=== PATIENT | male | born 1960 | race Caucasian/White ===

== ENCOUNTER 2017-07-23 16:28 | Emergency (ER) | payer OTHER, SELFPAY ==
[2017-07-23 16:30] VITALS: BP 159/76; PULSE 67; RESP 16; TEMP 36.8; O2SAT 98; BMI 38.9
--- NOTE | 2017-07-23 16:48 | ED.VISSUMM ---
- ER Visit Summary Date of Service: 07/23/17 Chief Complaint: Left Thumb laceration History of Present Illness: The patient is a 57 M who cut his left thumb with a Utility knife today at work. He is left handed. Tetanus is uptodate. Physical Examination: 2.5 cm linear laceration across the volar surface of the thumb. no active bleeding. good opposition. normal movement. nvi distally. There is a small abrasion on the palm of the hand. Emergency Department Course and Treatment: Wound locally anesthesized with 1% lidocaine. Cleaned with surcleanse and explored. Closed using #5 4-0 Simple interuptted Ethilon Sutures. Wounds dressed. Wound care discussed with patient. Stitches need removed in 10-14 days. Impression: 2.5 cm left thumb laceration with repair This note was generated with Apprats dictation software. It may contain incorrect words, spelling, and punctuation that were not noted in review of the chart prior to signing ED Disposition - Plan for ED Patient: Disposition: Home or Assisted Living Chief Complaint: Laceration Instructions: ED Laceration Hand Referrals: Nemesio Barton III, MD [Primary Care Provider] - [facility] [GROUP OF PHYSICIANS] - 10-14 Days suture removal
--- NOTE | 2017-07-23 16:54 | ED.DCSUM_ITS ---
- ER Visit Summary Date of Service: 07/23/17 Chief Complaint: Left Thumb laceration History of Present Illness: The patient is a 57 M who cut his left thumb with a Utility knife today at work. He is left handed. Tetanus is uptodate. Physical Examination: 2.5 cm linear laceration across the volar surface of the thumb. no active bleeding. good opposition. normal movement. nvi distally. There is a small abrasion on the palm of the hand. Emergency Department Course and Treatment: Wound locally anesthesized with 1% lidocaine. Cleaned with surcleanse and explored. Closed using #5 4-0 Simple interuptted Ethilon Sutures. Wounds dressed. Wound care discussed with patient. Stitches need removed in 10-14 days. Impression: 2.5 cm left thumb laceration with repair This note was generated with YR.MRKT dictation software. It may contain incorrect words, spelling, and punctuation that were not noted in review of the chart prior to signing ED Disposition - Plan for ED Patient: Disposition: Home or Assisted Living Chief Complaint: Laceration Instructions: ED Laceration Hand Referrals: Nemesio Barton III, MD [Primary Care Provider] - [facility] [GROUP OF PHYSICIANS] - 10-14 Days suture removal
[2017-07-23 17:03] VITALS: RESP 18; O2SAT 97
== END 2017-07-23 17:08 | disposition home or self-care (01) ==
PROVIDERS: Emergency Provider Emergency Medicine; Family Provider Family Medicine; PCP Family Medicine
DX: S61.012A Laceration without foreign body of left thumb without damage to nail, initial encounter (principal); W26.0XXA Contact with knife, initial encounter; Y93.9 Activity, unspecified; Y92.89 Other specified places as the place of occurrence of the external cause; Y99.0 Civilian activity done for income or pay; E11.9 Type 2 diabetes mellitus without complications; I10 Essential (primary) hypertension; E78.00 Pure hypercholesterolemia, unspecified
CPT/HCPCS: 12001; 99284

== ENCOUNTER 2019-02-10 08:33 | Day surgery (SDC) | payer OTHER, SELFPAY ==
[2018-12-25 08:54] VITALS: BMI 38.9
--- NOTE | 2019-01-12 08:54 | HP_ITS ---
I have re-examined the patient. There are no clinical changes since date of exam. 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 Is patient in pain?: No Allergies No Known Allergies Allergy (Verified 12/25/18 08:50) Medications Albuterol IH (ProAir) [Proair Hfa] 1 puff PO DAILY 07/23/17 [History Confirmed 12/25/18] Budesonide/Formoterol 160/4.5 [Symbicort 160/4.5 Mcg Inhaler (SP)] 1 puff PO DAILY 07/23/17 [History Confirmed 12/25/18] Simvastatin [Zocor] 40 mg PO DAILY 07/23/17 [History Confirmed 12/25/18] aspirin 81 mg tablet,delayed release 81 mg PO DAILY 12/25/18 [History Confirmed 12/25/18] lisinopril 10 mg tablet 5 mg PO DAILY tab 12/25/18 [History Confirmed 12/25/18] montelukast 10 mg tablet 10 mg PO QPM 12/25/18 [History Confirmed 12/25/18] [facility] Medical History (Updated 12/25/18 @ 08:52 by Fannie Barton MD) Umbilical hernia without obstruction or gangrene (Acute) Asthma (Acute) Sleep apnea (Acute) Diabetes (Acute) Surgical History (Updated 12/25/18 @ 08:39 by Ximena Thacker) Hx of foot surgery (Acute) Hx of colonoscopy (Acute) Family History Father Diabetes Heart disease Hypertension High cholesterol Mother CVA (cerebral vascular accident) Social History (Updated 12/25/18 @ 08:54 by Fannie Barton MD) Smoking Status: Current every day smoker alcohol intake: current alcohol intake frequency: 0-2 drinks per day Alcohol type: beer substance use type: marijuana caffeine: Yes what type of physical activity do you participate in: walking HPI HPI HPI: FANNIE FRIED, is a 58 M who presents to the office today for HPI HPI Surgical H&P: Yes HPI: FANNIE FRIED, is a 58 M who presents to the office today for surgical consultation regarding a progressively enlarging umbilical hernia. The patient reminds me that I seen him several years in the past. At that point he weighed 260 pounds. Ice suggested to the that he consider weight loss prior to attempting repair. In the interim he has lost 50 pounds in weight. 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 He does do some heavy lifting and straining. ROS General General: Yes weight change; no appetite, fatigue, colon cancer, breast cancer or weakness HEENT HEENT: No difficulty swallowing, eye injury, eye surgery, swollen glands or hoarseness Endo Endocrine: Yes diabetes mellitus; no thyroid disease, thyroid cancer, Hair loss, heat intolerance or cold intolerance Skin Skin: No rash or changing moles Musc Musculoskeletal: No back problems, arthritis, rheumatoid arthritis, gout or joint pain Cardio Cardiovascular: No murmur, pacemaker, heart disease, atrial fibrillation, high blood pressure, heart attack, heart stent, palpitations, shortness of breat with exertion or chest pain Psych Psychiatric: No depression, anxiety or hearing voices Resp Respiratory: No shortness of breath, Yes sleep apnea, No cough, No COPD, Yes asthma, No emphysema, No wheezing Gastro Gastrointestinal: No abdominal pain, No nausea or vomiting, No diarrhea, No constipation, No blood in stool, No acid reflux, No hemorrhoids, No ulcers, No gallbladder problem, No black,tarry stools Randolph Hematologic: No blood thinners, No blood disorders, No bleeding, No anemia, No blood clots Neuro Neurologic: No system reviewed and no additional complaints, except as docu, No as per HPI, No abnormal walking, No abnormal hearing, No abnormal movements, No abnormal speech, No behavioral changes, No burning sensations, No confusion, No seizure-like activity, No unsteadiness, No dizziness, No localized weakness, No frequent falls, No headache(s), No lack of coordination, No loss of vision, No memory loss, No numbness, No other visual disturbances, No radiating pain, No restless legs, No sensory deficit, No fainting, No tingling, No tremor(s), No weakness, No other Exam Const General: cooperative, healthy appearing, comfortable, no acute distress Nutritional Appearance: average body habitus Orientation: alert, awake, oriented x3 HENMT Head: normal to inspection Resp Effort & Inspection: normal respiratory effort Auscultation: clear to auscultation bilaterally Cardio Rate: regular rate Rhythm: regular rhythm Heart Sounds: no murmurs GI Palpation: soft, no hepatosplenomegaly Auscultation: normal bowel sounds Other: Incarcerated umbilical hernia. Fixed fascial defect. No obvious bowel involvement. Normal bowel sounds Neuro Cognition: normal cognition Extrem General: no calf tenderness bilaterally Psych Affect: normal affect Assessment & Plan Problems 1. Umbilical hernia without obstruction or gangrene K42.9 Plan Progressively enlarging umbilical hernia. Successful weight loss. I recommended the patient umbilical herniorrhaphy with mesh and I have discussed the technique, benefit, risks, alternatives. I believe I can achieve this via an open approach. I did caution about the potential need to use laparoscopic visualization for reinforcement. He has had an opportunity to ask and have questions answered. He is aware of the potential risk of recurrence. We will schedule and proceed at his discretion. I very much appreciate the kind opportunity of assisting with his surgical care. CC: Dr. Nemesio Barton, III Fannie Barton M.D., F.A.C.S. Coding Level of Care Code Off vis,new,level 3 Diagnoses Umbilical hernia without obstruction or gangrene K42.9 12/25/18 0854 <Electronically signed by Fannie delgadillo MD> Date _ Fannie Barton MD I have re-examined the patient. There are no clinical changes since date of exam.
[2019-02-03 08:25] VITALS: BMI 38.9
--- NOTE | 2019-02-07 08:45 | EKG12_ITS ---
Test Reason : PRE OP Blood Pressure : / mmHG Vent. Rate : 060 BPM Atrial Rate : 060 BPM P-R Int : 166 ms QRS Dur : 102 ms QT Int : 390 ms P-R-T Axes : 056 -63 046 degrees QTc Int : 390 ms Normal sinus rhythm Left anterior fascicular block Abnormal ECG Confirmed by DAVONTE KELLER, SYED ([id number]), staff editor MAYELIN JUSTICE ([id number]) on 02/10/2019 3:18:08 PM Referred By: Gaston Barton Confirmed By:CARLOS ARAUZ MD
[2019-02-07 09:48] LABS: Hemoglobin 15.7 g/dL (13.0-16.5); Mean Corp Hgb Conc 34.9 g/dL (32-36); Mean Corpuscular Hgb 32.9 pg (27.0-32.0); Mean Corpuscular Volume 94.3 fL (80-94); Mean Platelet Vol. 10.4 fl (6.2-12.0); Platelet Count 157 K/mm3 (150-450); RBC Distribution Width CV 12.1 % (11.6-14.6); RBC Distribution Width SD 42.1 fl (35.1-43.9); Red Blood Count 4.77 M/mm3 (4.6-6.2); White Blood Count 6.8 K/mm3 (4.4-11.0)
[2019-02-07 10:19] LABS: Anion Gap 4 (5-15); BUN 15 mg/dL (7-18); BUN/Creat Ratio 12.9 RATIO (10-20); Calcium,Total 8.7 mg/dL (8.5-10.1); Chloride 109 mmol/L (98-107); Creatinine, Serum 1.16 mg/dL (0.70-1.30); EST Glomerular Filtration Rate 69 mL/min (>60); Est Glom Filt Rate - Afr Amer 83 mL/min (>60); Glucose 121 mg/dL (74-106); Sodium Level 140 mmol/L (136-145)
[2019-02-07 10:26] LABS: Hemoglobin A1c 5.2 % (4.2-6.3)
[2019-02-10] VITALS (7 sets, daily range): BP systolic 94–122; BP diastolic 67–85; PULSE 60–78; RESP 16–18; TEMP 36.1–36.6; O2SAT 93–97; BMI 33.7
[2019-02-10] MEDS: Lactated Ringers 1,000 ML 15 ML IV (09:04)
[2019-02-10 10:06] LABS: Bedside Glucose 98 mg/dL (70-110)
--- NOTE | 2019-02-10 10:50 | HERN_PTH ---
PATIENT: FANNIE FRIED LOC: [facility] [place][id number] AGE/SX: 58/M ROOM: RE02/10/[address]: Dr. Fannie Barton MD : 1960 BED: DIS: 02/10/2019 SPEC #: [id number] RECD: 02/10/19 13:57 STATUS: AMBER ANA LILIA #: [id number] SHARONDA: 02/10/19 10:[address]: Fannie Barton DEPT: SURGICAL PATHOLOGY RECD BY: Tashi Ames ENTERED: 02/10/19 14:08 SP TYPE: Hernia OTHR DR: Dr. Nemesio Barton III, MD Tissues: HERNIA Procedures: Surgery Specimen Level IV HEADER OPERATION: Umbilical hernia repair with mesh, possible conversion to lap PRE-OP DIAGNOSIS: Umbilical hernia without obstruction or gangrene TISSUE SUBMITTED: Umbilical hernia sac contents MICROSCOPIC DIAGNOSIS Umbilical hernia sac contents: A piece of fibroadipose and fibroconnective tissue, consistent with hernia sac with focal dense fibrosis and chronic inflammation. NGOZI:christal 02/11/19 MICROSCOPIC DESCRIPTION Slides are reviewed. GROSS DESCRIPTION Received in fixative is one container labeled with the patient's name and designated umbilical hernia sac contents. The specimen consists of a piece of yellow-scott fibroadipose tissue measuring 2.5 x 2.5 x 0.2 cm. No mass lesion is identified. The entire specimen is submitted in one cassette. / NGOZI:christal 02/10/19 TC:5 CPT: 14854
--- NOTE | 2019-02-10 10:51 | PCM.DC.GS ---
Discharge Diet: Light diet - advance as tolerated - if you have questions about your diet instructions, please talk to you doctor. Discharge Activity: May Not Drive - for 3-5 days or while taking narcotic pain medicine. May shower in (days): 1 Lifting Restrictions: 10 pounds Call your doctor if your incision/area has: Continuous Slow Oozing, Sudden Increased Bleeding, Increased Pain/ Swelling, Increased Redness, Foul Smelling Discharge Call your doctor if you observe: Fever of 101 or Higher Suture Line Care: Avoid Pulling/Pushing, Avoid Pinching/Bending Additional Dressing/Incision Instructions:: Change or remove dressing in 4 days. Leave steri-strips in place for 1 week. Allergies/Adverse Reactions: Allergies No Known Allergies Allergy (Verified 02/06/19 09:50) Medications to take at Discharge Albuterol IH (ProAir) [Proair Hfa] 1 puff PO DAILY PRN 07/23/17 RX: Budesonide/Formoterol 160/4.5 [Symbicort 160/4.5 Mcg Inhaler (SP)] 1 puff PO DAILY 07/23/17 RX: Simvastatin [Zocor] 40 mg PO DAILY 07/23/17 aspirin 81 mg tablet,delayed release 81 mg PO DAILY 12/25/18 lisinopril 10 mg tablet 5 mg PO DAILY tab 12/25/18 montelukast 10 mg tablet 10 mg PO QPM 12/25/18 Orders to be completed after discharge: 12 Lead EKG [CVS] Time Frame: 02/06/19, Facility: [facility], Location: Cardiovascular Services Basic Metabolic Profile (BMP) Time Frame: 02/06/19, Facility: [facility], Location: Laboratory CBC-Complete Blood Cnt No Diff Time Frame: 02/06/19, Facility: [facility], Location: Laboratory Hemoglobin A1c Time Frame: 02/06/19, Facility: [facility], Location: Laboratory Primary Care Physician: Nemesio Barton III, MD [Primary Care Provider] - Test Results: Test results from this visit will be discussed in further detail at your follow-up appointment, if applicable. Please Follow Up With: Gaston Barton MD - [phone] When: Call to make an appointment to be seen in about 10 days.
[2019-02-10] MEDS: Cefazolin 2 GM in 0.9% Normal Saline 100 ML IV (11:31)
--- NOTE | 2019-02-10 12:14 | PCM.OPRPT ---
Problem List (1) Umbilical hernia without obstruction or gangrene Status: Acute Report of Operation Date of Procedure: 02/10/19 Pre-Operative Diagnosis: Umbilical hernia without obstruction Post-Operative Diagnosis: Same Surgery/Procedure Performed:: Umbilical herniorrhaphy with 8 cm ventralex mesh, lot number [id number]. Reference #[id number]. Expiry date 11/22/2020 Description of Surgical Findings:: Timeout and informed consent was obtained. 58-year-old gentleman was taken out from placement table underwent general endotracheal intubation anesthesia. Wellman scope was required. He received 2 g of Ancef intravenously. The abdomen sterilely prepped draped. A curvilinear incision was made the inferior portion of the umbilicus sharp dissection carried down through the substance tissue the hernia sac was encountered it was sharply circumferentially dissected free were needed hemostasis obtained electrocautery there was adherence to greater omentum that adherence was transected and the greater omentum was placed back within the abdomen. The defect measured approximately 2-1/2 cm diameter. A 8 cm ventral Yang mesh was inserted. The tails were secured with interrupted 0 Nurolon. The fascia was then closed transversely with interrupted 0 Nurolon taking care to take a very small portion of the mesh centrally to help secure it. Though simple sutures were then secured. There was good positioning that was felt to been achieved. The skin was approximated interrupted 4-0 Monocryl subdermal stitches. Steri-Strips Telfa cottonball OpSite bulky dry dressings applied. Sponge and instrument and needle counts reported the surgeon be correct. Blood loss was minimal. Specimens hernia sac contents. Drains none. Blood loss minimal. Gaston Barton M.D., F.A.C.S. Type of Anesthesia:: General Anesthesiologist: Jeffrey Qureshi
[2019-02-10] MEDS: Bupivacaine 0.25% 30 ML Vial (12:17)
[2019-02-10] MEDS: HYDROcodone Bitartrate/Apap 5/325 Tablet PO (13:45)
== END 2019-02-10 14:50 | disposition home or self-care (01) ==
LOC: SDC 08:36 → AC 08:37
PROVIDERS: Family Provider Family Medicine; PCP Family Medicine; Referring Provider Surgery; Visit Provider Surgery
PROC: 0WQF4ZZ Repair Abdominal Wall, Percutaneous Endoscopic Approach (ICD-10-PCS; CPT 49585; principal; 2019-02-10 10:35)
DX: K42.9 Umbilical hernia without obstruction or gangrene (principal); J45.909 Unspecified asthma, uncomplicated; G47.30 Sleep apnea, unspecified; E11.9 Type 2 diabetes mellitus without complications; I10 Essential (primary) hypertension; Z79.82 Long term (current) use of aspirin; Z79.899 Other long term (current) drug therapy; F17.200 Nicotine dependence, unspecified, uncomplicated
CPT/HCPCS: 00750; 49585; 36415; 80048; 82962; 83036; 85027; 88302; 88305; 93005; J7120; C1781; J2405

== ENCOUNTER 2020-11-16 10:21 | Day surgery (SDC) | payer OTHER, SELFPAY ==
[2019-02-10 08:54] VITALS: BMI 33.7
--- NOTE | 2020-11-14 20:38 | HP.PCM_ITS ---
History and Physical Date of Admission: 11/16/20 Gaston Cohn 1960 ? ? REFERRING PHYSICIAN: Luis Carlos Pimentel,* ? ? HPI: The patient is a 60 year old male presents with pain of right groin area. He denies swelling in this area. He was noted to have a left inguinal hernia for years He has had previous umbilical hernia repair but no previous inguinal hernia repairs. ? US 10/21/2020 - small bilateral hydroceles ? ? PAST MEDICAL HISTORY ? Allergic rhinitis, cause unspecified ? ? Benign hypertension 03/12/2015 ? Benign neoplasm of rectum and anal canal ? ? Class 2 severe obesity due to excess calories with serious comorbidity and body mass index (BMI) of 37.0 to 37.9 in adult ([facility]) ? ? Diabetes mellitus type 2, controlled, without complications ([facility]) 03/12/2015 ? Esophagitis, unspecified ? ? Left inguinal hernia 06/06/2016 ? Other and unspecified hyperlipidemia ? ? Tobacco use disorder ? ? Umbilical hernia without obstruction or gangrene 06/06/2016 ? s/p repair ? Unspecified asthma(493.90) ? ? PAST SURGICAL HISTORY ? COLONOSCOP W/ OR W/O BRSH SPEC ? 04/11/2011 ? Colonoscopy=repeat in -2011 ? COLONOSCOP W/ OR W/O BRSH SPEC ? 01/05/2012 ? Colonoscopy ? COLONOSCOP W/ OR W/O BRSH SPEC ? 01/18/2017 ? Colonoscopy, repeat in 10 years ? EGD W/O OR W/BRUSH/WASH ? 04/11/2011 ? EGD ? PAST SURGICAL HISTORY OF Left ? ? foot surgery, got caught in machine at work, ORIF ? PAST SURGICAL HISTORY OF Right 12/31/2019 ? retina attachment surgery - [place] ? PAST SURGICAL HISTORY OF ? 2017 ? umbilical hernia repair ? ? Current Outpatient Medications ? loratadine/pseudoephedrine (CLARITIN-D 24 HOUR ORAL) Take by mouth. ? terbinafine HCl (LAMISIL) 250 mg tablet Take 1 tablet by mouth once daily. ? lisinopril (ZESTRIL, PRINIVIL) 5 mg tablet Take 1 tablet by mouth once daily. ? montelukast (SINGULAIR) 10 mg tablet Take 1 tablet by mouth daily at bedtime. ? budesonide-formoterol (SYMBICORT) 160-4.5 mcg/actuation inhaler Inhale 2 Puffs as instructed twice daily. ? simvastatin (ZOCOR) 40 mg tablet Take 1 tablet by mouth once daily. ? albuterol HFA (PROAIR HFA) 90 mcg/actuation inhaler 1 puff q 4 hours PRN for wheezing ? Aspirin 81 mg tab Take 1 tablet by mouth once daily. Take with food. ? ? ALLERGIES: No Known Drug Allergies ? PERSONAL HISTORY: Tobacco Use ? Smoking status: Current Some Day Smoker ? ? Years: 17.00 ? ? Types: Cigars ? ? Last attempt to quit: 05/28/1994 ? ? Years since quittin.4 ? Smokeless tobacco: Never Used ? Tobacco comment: still smokes 1-2 cigars a month Vaping Use ? Vaping Use: Never used Substance Use Topics ? Alcohol use: Yes ? ? Alcohol/week: 6.0 standard drinks ? ? Types: 4 Shots of liquor, 2 Cans of beer per week ? ? Comment: drinks weekly ? Drug use: Yes ? ? Types: Marijuana ? ? Comment: once per month ? FAMILY HISTORY ? Heart Mother ? ? Stroke Mother ? ? Hypertension Mother ? ? Diabetes Mother ? ? TYPE 2 ? other (myocardial infarction) Mother ? ? Heart Father ? ? CABG ? Hypertension Father ? ? Diabetes Father ? ? TYPE 2 ? Heart Sister ? ? CONGEINTAL ? No Known Problems Son ? ? No Known Problems Son ? ? ? Nursing Notes: Jayshree Sanchez LPN 11/08/2020 9:20 AM Signed REVIEW OF SYSTEMS: General: The patient denies fatigue, denies weight loss, denies weight gain, denies feeling hot, and denies feelings of cold. Eyes: The patient denies glaucoma, NOTES eye injury/surgery, wears glasses or contacts. Ear/Nose/Throat: The patient denies allergies, denies hayfever, denies ear infections, and denies bloody noses. Cardiovascular: The patient denies chest pain, denies heart disease, denies high blood pressure,denies cardiac stent, denies prior heart attack, denies irregular heart beat, NOTES high cholesterol, denies poor circulation, denies heart failure, other cardiac issues, denies claudication, denies cold fee t, denies peripheral arterial stent. Respiratory: The patient denies tuberculosis, denies pneumonia, denies frequent cough, denies pulmonary embolism, denies shortness of breath, and denies coughing up blood. Gastrointestinal: The patient denies difficulty swallowing, denies acid reflux, denies ulcers, denies vomiting, denies jaundice/hepatitis, denies gallbladder problems, denies black or tarry stools, denies hemorrhoids, denies bleeding from rectum, denies diverticulitis, denies constipation, denies diarrhea, denies loss of stool control, and NOTES hernias. Kidney/Bladder: The patient denies kidney stones, denies urine infections, and denies bloody urine. Skin: The patient denies a history of skin cancer, denies bleeding/changing moles, and denies a history of skin rash. Neurologic: The patient denies a history of epilepsy/convulsions, denies headaches, denies head/spinal injuries, and denies stroke/TIA. Psychiatric: The patient denies psychiatric medications, denies depression, and denies voices, denies substance abuse. Endocrine: The patient denies thyroid disorders, NOTES diabetes, and denies hormonal problems. Hematologic: The patient denies a history of bruising, denies bleeding, and denies anemia, denies blood clots. Infections: The patient denies a history of measles and mumps, denies rheumatic fever, and denies sexually transmitted diseases. Musculoskeletal: The patient denies back pain/injury, denies back problems, denies sciatica, denies knee/foot trouble, NOTES arthritis, or denies gout. When was patient's last Mammogram screening? N/A Last Colonoscopy: 01/18/2017 Jayshree Sanchez LPN ?? PHYSICAL EXAMINATION: General: The patient is 60 year old male, well nourished, well hydrated in no acute distress. The patient is oriented to time, place, and person. VITALS: Blood pressure 134/80, pulse 77, temperature 36.5 ?C (97.7 ?F), temperature source Temporal Artery, weight 108 kg (238 lb), SpO2 97 %. Body mass index is 37.36 kg/m?. Head ? Normocephalic. EOM intact with sclera clear and no icterus noted. Neck - supple with no jugular venous distention noted. Trachea is midline. Lungs ? clear to auscultation. Normal breath sounds. No rales/rhonchi/wheezing noted. No labored breathing noted, such as retractions. No cough heard. Heart ? normal S1 and S2 auscultated. No rubs/clicks/murmurs noted. Regular rate. Abdomen ? soft and benign. Normal bowel sounds. No abdominal bruits noted. Difficult to determine if any masses or organomegaly due to body habitus. Genitalia ? normal male phallus, testes in normal anatomical position and no masses noted, left inguinal hernia - reducible, no right inguinal hernia noted even with valsalva-like maneuvers Extremities ? no calf tenderness noted. No pitting edema noted. Skin ? normal skin integrity. Neurological ? gait normal, no focal deficits noted. Psych ? calm and appropriate ? IMPRESSION: right groin pain, left inguinal hernia ? PLAN: I have discussed the above with the patient. I told patient that I do not detect a right inguinal hernia I have offered left inguinal hernia repair with mesh. I have explained the procedure to the patient. I have counseled the patient as to the risks of the procedure, including but not limited to: infection, bleeding, injury to any blood vessels/nerves, scar tissue, injury to the spermatic cord and/or testicle, chronic groin pain, injury to the bowel/bladder, recurrence of hernia, wound infections, complications of anesthesia, etc. ? the patient understands. I have also offered patient robotic laparoscopic hernia repair, enables visualization of the right side if hernia is present. The patient wishes to proceed with open left inguinal hernia. I have answered all questions to the patient?s satisfaction and the patient has no further questions. . Diagnoses: (R10.31) Right groin pain (primary encounter diagnosis) (K40.90) Left inguinal hernia (N43.3) Bilateral hydrocele Return to Clinic: The patient is instructed to follow-up with me after the procedure. ? Natalie Schneider MD v
--- NOTE | 2020-11-15 10:04 | EKG12_ITS ---
Test Reason : PRE OP Blood Pressure : / mmHG Vent. Rate : 061 BPM Atrial Rate : 061 BPM P-R Int : 174 ms QRS Dur : 106 ms QT Int : 390 ms P-R-T Axes : 048 -58 029 degrees QTc Int : 392 ms Normal sinus rhythm Left axis deviation Abnormal ECG Confirmed by YUKI KELLER, KIN ([id number]), assistant editor PADMINI CARMEN ([id number]) on 11/16/2020 9:33:40 AM Referred By: Natalie Schneider Confirmed By:KIN MIRZA MD
[2020-11-15 11:27] LABS: Hematocrit 45.6 % (40-54); Hemoglobin 15.7 g/dL (13.0-16.5); Mean Corp Hgb Conc 34.4 g/dL (32-36); Mean Corpuscular Hgb 32.2 pg (27.0-32.0); Mean Corpuscular Volume 93.4 fL (80-94); Mean Platelet Vol. 9.9 fl (6.2-12.0); Platelet Count 178 K/mm3 (150-450); RBC Distribution Width SD 41.3 fl (35.1-43.9); Red Blood Count 4.88 M/mm3 (4.6-6.2); White Blood Count 6.9 K/mm3 (4.4-11.0)
[2020-11-16] VITALS (9 sets, daily range): BP systolic 102–128; BP diastolic 66–93; PULSE 67–76; RESP 16; TEMP 36.1–36.6; O2SAT 93–99; BMI 36.8
[2020-11-16] MEDS: Lactated Ringers 1,000 ML 75 ML IV ×2 (11:34)
[2020-11-16] MEDS: Cefazolin 2 GM in 0.9% Normal Saline 100 ML IV (11:58)
[2020-11-16] MEDS: Bupivacaine 0.25% 30 ML Vial (13:11)
--- NOTE | 2020-11-16 13:15 | PCM.OPRPT ---
Report of Operation Date of Procedure: 11/16/20 Pre-Operative Diagnosis: left inguinal hernia Post-Operative Diagnosis: left inguinal hernia - direct Surgery/Procedure Performed:: left inguinal hernia repair with mesh Surgeon: Natalie Schneider field marketing manager: Quique Adams Type of Anesthesia: General Anesthesiologist: Ezequiel Euceda Specimen's removed: none Estimated Blood Loss (mL): < 10 ml Fluids Replaced: 1500 ml Description of Procedure: After informed consent was obtained, patient was brought to the Operating Room. Appropriate time out protocol was followed. The patient was placed in the supine position. The patient was then placed under anesthesia by the anesthesia provider. The lower torso and the left groin area and genitalia were then prepped with a surgical skin preparation and appropriate sterile surgical drapes were placed. The anatomical landmarks were identified and after anesthetizing the skin and subcutaneous tissues with 0.25% Marcaine with epinephrine, a transverse skin incision was made above the level of the internal inguinal ring. The subcutaneous tissues were then sharply dissected down to the external oblique fascia and any hemorrhage was adequately controlled with electrocoagulation. The external oblique was then divided obliquely along the fibers and a muscle-splitting incision was then made to divide the internal oblique musculature and fascia. The transversalis fascia was then identified and was then incised parallel to the inferior hypogastric vessels. The preperitoneal space was then entered. Blunt dissection was then done to identify out Chavo's ligament, the pubic tubercle and a large area surrounding these landmarks for placement of the mesh. The iliac vessels were identified. The patient was noted to have a femoral hernia. Within Hasselbach's triangle, there was a fascial defect noted. The hernia was reduced back into the preperitoneal cavity. The spermatic cord was identified and isolated to prevent its injury. There was no internal hernia sac identified. There was an obvious large direct inguinal defect in Hasselbach's triangle. A large left sided Bard 3D mesh was then positioned into the preperitoneal space. It was placed such that the medial aspect would be overlapping medial to the pubic tubercle and the inferior edge would be placed inferior to Chavo's ligament. The remainder of the mesh was flattened out against the anterior abdominal wall. The mesh also covered the wound opening in the preperitoneal space. A 5mm tack was placed to secure the mesh to the pubic tubercle and another tack placed just medial to the iliac vessels. The internal oblique and transversalis fascia was then reapproximated using interrupted 0 prolene suture. One of the sutures was used to lock the mesh into position and secure it to the anterior abdominal wall. Hemostasis was carefully controlled with electrocoagulation. The external oblique fascia was then reapproximated using a running 0 Vicryl suture. This was carefully done to avoid any entrapment of blood vessels/nerves. Sharyn's fascia was closed using Vicryl suture in an interrupted simple fashion. The skin incision was closed with 4-0 Monocryl in a running subcuticular fashion. Cavilon and Steri-Strips were used to reinforce the skin closure and appropriate sterile dressing was applied. Sponge, needle, and instrument count were verified and correct at the time of skin closure. The patient was brought to the Recovery Room in stable condition. Grafts/Implants Used: Bard 3d left sided mesh - 2024-11-22 lot [id number] Complications none note Admit VTE Documentation VTE Present on Admission: Yes VTE Mechan Device Prophylaxis: SCD's
--- NOTE | 2020-11-16 14:12 | DCINST_ITS ---
Discharge Instructions Follow Up Care Test Results: Test results from this visit will be discussed in further detail at your follow-up appointment, if applicable. Discharge Plan Admission Attending Provider: Natalie Schneider Primary Care Provider: Cayetano Pimentel Instructions Additional Instructions / Restrictions: Recommended pain control regimen - May take 600 mg ibuprofen (Motrin) and then in 3-4 hours, may take 650 mg acetaminophen (Tylenol), then in 3-4 hours may take 600 mg ibuprofen, then in 3- 4 hours may take 650 mg acetaminophen and so on for 2-3 days May take narcotic pain medication for pain that is not controlled by above and at night for comfort through the night Leave dressings in place May take shower, avoid scrubbing in the area of the dressing otherwise it will unravel. Do not soak - no tub baths/swimming Ice applied to areas of discomfort may help No lifting/pushing/pulling greater than 20-40 pounds for a month. For hernia repairs - sit in a Lazy-Boy type chair or similar position for comfort and elevate legs, place ice packs in the affected area. If you have scrotal swelling, place a folded towel on top of the upper part of your thighs and place scrotum on top of this to allow for fluid to return back into the torso. Please call my office to make an appointment for follow up in 1-2 weeks If any questions, please call my office at and ask the electrical logging operator for the general surgery nurses desk Discharge Orders/Prescriptions Prescriptions: New hydrocodone-acetaminophen 5-325 mg tablet 1 tab PO Q8H 5 Days Qty: 15 RF: 0 No Action aspirin [Adult Low Dose Aspirin] 81 mg tablet,delayed release (DR/EC) 81 mg PO DAILY RF: 0 montelukast 10 mg tablet 10 mg PO QPM RF: 0 simvastatin 40 MG tablet 40 mg PO DAILY RF: 0 albuterol sulfate 90 MCG inhaler 1 puff PO DAILY PRN (Reason: Sob &/Or Wheezing) RF: 0 budesonide-formoterol 160-4.5 inhaler 1 puff PO DAILY RF: 0 lisinopril 10 mg tablet 5 mg PO DAILY RF: 0 terbinafine HCl 250 mg tablet 250 mg PO DAILY RF: 0 Referrals / Follow Up: Cayetano Pimentel MD [Primary Care Provider] - Disposition Disposition (needs filled in before D/C Order can be placed): Home, Self Care
== END 2020-11-16 16:17 | disposition home or self-care (01) ==
LOC: SDC 10:24 → AC 10:36
PROVIDERS: Anesthesiology; PCP Family Medicine; Referring Provider Surgery; Visit Provider Surgery
PROC: (CPT 49505; principal; 2020-11-16 11:45)
DX: K40.90 Unilateral inguinal hernia, without obstruction or gangrene, not specified as recurrent (principal); N43.3 Hydrocele, unspecified; I10 Essential (primary) hypertension; E11.9 Type 2 diabetes mellitus without complications; E78.5 Hyperlipidemia, unspecified; E66.01 Morbid (severe) obesity due to excess calories; Z68.37 Body mass index [BMI] 37.0-37.9, adult; Z79.51 Long term (current) use of inhaled steroids; Z79.82 Long term (current) use of aspirin; Z79.899 Other long term (current) drug therapy; Z82.49 Family history of ischemic heart disease and other diseases of the circulatory system; Z83.3 Family history of diabetes mellitus; Z86.010 Personal history of colon polyps
CPT/HCPCS: 49505; 36415; 85027; 93005; J7050; J7120; C1781; J2405